=== PATIENT | female | born 1935 | race African-American/Black ===

== ENCOUNTER → 2020-09-11 | Outpatient (CLI) | payer OTHER ==
[~2020-09-11] MED LIST: HYDROCHLOROTH12.5 MG; LISINOPRIL10 MG; NORVASC 5 MG TAB5 MG PO; PREDNISONE 10 M10 M1; RANITIDINE HCL300 M1
== END ==
LOC: ULTRA 06:34
PROVIDERS: ATTEND Internal Medicine
DX: E04.2 Nontoxic multinodular goiter (principal)